=== PATIENT | female | born 1935 | race African-American/Black ===

== ENCOUNTER → 2017-09-04 | Outpatient (CLI) | payer OTHER ==
--- NOTE | 2017-09-04 13:06 | Diagnostic Imaging Report ---
PROCEDURE:US RETROPERITONEAL ( KIDNEY ). COMPARISON:None. INDICATIONS:Chronic Kidney Disease Stage 3 TECHNIQUE: Pickett-scale and color sonographic images of the bilateral kidneys and bladder where obtained in transverse and longitudinal planes. FINDINGS: RIGHT KIDNEY: 9.1 cm, cortex of 0.5 cm Cysts: None. Solid masses: None. Stones: None. Hydronephrosis: None. Echogenicity: Normal. LEFT KIDNEY: 8.4 cm, cortex 1.6 cm Cysts: 0.9 x 0.9 x 0.8 cm left renal simple cyst. Solid masses: None. Stones: None. Hydronephrosis: None. Echogenicity: Normal. Bladder: Normal contour. No focal mass. Bilateral ureteral jets are visualized. CONCLUSION: No acute sonographic abnormality. Dictated by: Donte Shannon M.D. on 09/04/2017 at 13:07 Electronically approved by: Donte Shannon M.D. on 09/04/2017 at 13:07
--- NOTE | 2017-09-04 15:11 | Diagnostic Imaging Report ---
PROCEDURE:URINARY BLADDER ULTRASOUND COMPARISON:None. INDICATIONS:Chronic Kidney Disease Stage 3 CONCLUSION: Please refer to the retroperitoneal ultrasound performed at the same date and time for full dictated report. Dictated by: Donte Shannon M.D. on 09/04/2017 at 15:12 Electronically approved by: Donte Shannon M.D. on 09/04/2017 at 15:12
== END ==
LOC: US 10:14
PROVIDERS: ATTEND Internal Medicine Nephrology
DX: N18.3 Chronic kidney disease, stage 3 (moderate) (principal); E11.9 Type 2 diabetes mellitus without complications; I10 Essential (primary) hypertension
CPT/HCPCS: 76770; 76857